=== PATIENT | female | born 1980 | race Caucasian/White ===

== ENCOUNTER 2019-07-02 11:45 | Inpatient (IN) | payer OTHER ==
[~2019-07-02] VITALS: Ht 165.1 cm; Wt 72.6 kg
[~2019-07-02 11:45] MED LIST: PRENATAL CAPLE1 EACH; ZANTAC300 MG
== END 2019-07-29 11:03 | disposition home or self-care (01) | DRG 807 ==
LOC: OB/GYN 07-27 19:28 → LDR 07-27 19:28 → OB/GYN 07-27 23:29
PROVIDERS: ADMIT Obstetrics & Gynecology Maternal & Fetal Medicine
PROC: 10E0XZZ Delivery of Products of Conception, External Approach (ICD-10-PCS; principal; 2019-07-27)
PROC: 0UQGXZZ Repair Vagina, External Approach (ICD-10-PCS; 2019-07-27)
PROC: 4A1HXCZ Monitoring of Products of Conception, Cardiac Rate, External Approach (ICD-10-PCS; 2019-07-27)
DX: O71.4 Obstetric high vaginal laceration alone (principal); Z37.0 Single live birth; Z3A.38 38 weeks gestation of pregnancy